=== PATIENT | male | born 1960 | race Caucasian/White ===

== ENCOUNTER 2024-08-10 10:59 | Inpatient (IN) | payer OTHER, SELFPAY ==
[2024-08-10] VITALS (10 sets, daily range): BP systolic 140–181; BP diastolic 78–90; PULSE 78–118; RESP 15–20; TEMP 36.1–37.2; O2SAT 94–100; BMI 31.2; BMI 30.9
[2024-08-10 11:57] LABS: Absolute Lymphocyte Count 0.98 X10^3/uL (0.83-4.51); Absolute Neutrophil Count 5.1 X10^3/uL (2.0-7.7); Basophil# 0.07 X10^3/uL; Eosinophil# 0.04 X10^3/uL; Eosinophils% 0.6 % (0-5); Hematocrit 41.3 % (40-54); Hemoglobin 14.3 g/dL (13.0-16.5); Lymphocyte # 0.98 X10^3/ul (0.83-4.51); Lymphocyte % 14.1 % (19-41); Mean Corp Hgb Conc 34.6 g/dL (32-36); Mean Corpuscular Hgb 32.5 pg (27.0-32.0); Mean Corpuscular Volume 93.9 fL (80-94); Mean Platelet Vol. 9.4 fl (6.2-12.0); Monocyte# 0.75 X10^3/uL; Monocyte% 10.8 % (0-10); NRBC Flagged by Analyzer 0 % (0-5); Neutrophil # 5.09 X10^3/uL (2.7-7.7); Neutrophil % 73.1 % (47-70); Platelet Count 171 K/mm3 (150-450); RBC Distribution Width CV 13.2 % (11.6-14.6); RBC Distribution Width SD 45.4 fl (35.1-43.9)
--- NOTE | 2024-08-10 12:01 | EDS_ITS ---
HPI History of Present Illness Chief Complaint: ETOH Intox Informant: patient and family (Niece) Narrative Narrative: 64-year-old male presenting to the emergency room requesting detox from alcohol. Patient states that he typically will drink around 10 Ghislaine beers a day. Since losing his job 3 weeks ago he has been drinking more. He had not seen a doctor for several years but eventually symptoms of bursitis led him to an emergency department visit and he was referred to primary care and has subsequently been diagnosed as diabetic. He states that he has tingling of his hands and his legs. He states that while visiting with his primary care doctor they referred him to 180 who requested that he come to the hospital for detox out of concern for potential withdrawal. Patient does not recall any withdrawal symptoms that has had in the past such as shaking or anxiety or palpitations. He notes that he frequently has loose stool which has been a chronic issue. 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 [facility] Medical History (Updated 08/10/24 @ 12:[address] Oleg Smith DO) Diabetes Home Medications ?Medication ?Instructions ?Recorded ?Last Taken ?Type etkmylzp-atqycytn-uyqga acid 400 1 tab PO DAILY 08/10/24 08/09/24 History mcg-vit K 20 mcg-lycop 300 mcg tablet (One-A-Day Men's Multivitamin) Allergy/AdvReac Type Severity Reaction Status Date / Time No Known Allergies Allergy Verified 08/10/24 11:00 Social History Smoking Status: Former smoker ROS ROS ED Constitutional Constitutional ED: Denies chills or weight loss Eyes Eyes: Denies change in vision or diplopia ENT ENT ED: Denies ear pain, rhinorrhea or sore throat Cardiovascular Cardiovascular: Denies chest pain, orthopnea, palpitations or racing heartbeat Respiratory/Chest Respiratory/Chest: Denies cough, dyspnea or orthopnea Gastrointestinal Gastrointestinal: Reports diarrhea; Denies abdominal pain, nausea or vomiting Genitourinary Genitourinary ED: Denies dysuria, hematuria or urinary frequency Musculoskeletal Musculoskeletal: Denies arthralgias or myalgias Integumentary Denies abscess or rash Neurologic Neurologic: Reports paresthesias; Denies headache(s) or weakness Psychiatric Psychiatric: Denies anxiety, depression, suicidal ideation or suicidal thoughts Endocrine Endocrinology: Denies polydipsia, polyphagia or polyuria Allergic/Immunologic Allergic/Immunologic ED: Denies mouth swelling, tongue swelling or urticaria EXAM Physical Exam Const Vital Signs: 08/10/24 11:00 08/10/24 11:00 08/10/24 11:44 Temperature 98.3 F 98 F Temperature Source Temporal Temporal Pulse Rate 118 H 111 H 78 Respiratory Rate 20 H 20 H 16 Blood Pressure 167/82 H 181/79 H 158/78 H Blood Pressure Mean 110 113 104 Blood Pressure Source Monitor Pulse Ox 100 97 98 Oxygen Delivery Method Room Air Room Air Room Air 08/10/24 12:00 08/10/24 13:00 Temperature Temperature Source Pulse Rate 92 Respiratory Rate Blood Pressure 144/79 H 162/79 H Blood Pressure Mean 100 106 Blood Pressure Source Pulse Ox Oxygen Delivery Method Positive well nourished and well developed General Appearance ED: well developed HEENT Reports normocephalic, head/scalp atraumatic and moist mucous membranes Eyes PERRL and EOMs intact bilaterally Neck no lymphadenopathy, supple and no JVD Resp normal respiratory effort and clear to auscultation bilaterally Cardio regular rate, regular rhythm and no murmurs GI normal to inspection, nondistended, normoactive bowel sounds and non-tender Palpation: soft Back/Spine no CVA tenderness and normal ROM Extremity normal to inspection General Extremety ED: Negative for edema General Extremity: Negative for edema Neuro oriented x3 and CN's II-XII intact bilaterally Sensorium / Orientation: alert Motor Exam: strength 5/5 throughout Psych mental status grossly normal Mood & Affect: Negative for depressed or tearful Skin no rashes or lesions noted and no wounds MDM MDM MDM Narrative Medical decision making narrative: Differential diagnosis includes alcohol abuse alcohol intoxication alcoholic hepatitis anemia electrolyte disturbance dehydration protein malnutrition White count 7.0 hemoglobin 14.3 plate count of 171 INR is normal at 1 electrolytes show a slight decrease in sodium at 130 glucose 173 magnesium 1.9 total bilirubin 1.4 direct bilirubin 0.57 AST 120 ALT 64 alk phos 140 albumin is 4 toxicology is negative. I spoke with social work regarding the patient as well as the hospitalist plan is admission History & Record Review Discussion w/independent historian: Patient and Family Lab Data Attestation: I reviewed the patient's lab results. Labs: Laboratory Results - last 24 hr 08/10/24 08/10/24 11:18 11:26 WBC 7.0 RBC 4.40 L Hgb 14.3 Hct 41.3 MCV 93.9 MCH 32.5 H MCHC 34.6 RDW Std Deviation 45.4 H RDW Coeff of Bakari 13.2 Plt Count 171 MPV 9.4 Immature Gran % (Auto) 0.400 Neut % (Auto) 73.1 H Lymph % (Auto) 14.1 L [place] % (Auto) 10.8 H Eos % (Auto) 0.6 Baso % (Auto) 1.0 Absolute Neuts (auto) 5.1 Absolute Lymphs (auto) 0.98 Nucleated RBC % 0 PT 13.4 INR 1.0 Sodium 130 L Potassium 4.2 Chloride 96 L Carbon Dioxide 26.0 Anion Gap 9 BUN 8 Creatinine 0.94 Estim Creat Clear Calc 81.80 Est GFR (MDRD) Af Amer 104 Est GFR (MDRD) Non-Af 86 BUN/Creatinine Ratio 8.5 L Glucose 173 H Calcium 9.3 Magnesium 1.9 Total Bilirubin 1.40 H Direct Bilirubin 0.57 H AST 120 H ALT 64 H Alkaline Phosphatase 140 H Total Protein 9.1 H Albumin 4.0 Globulin 5.1 H Lipase 49 Urine Opiates Screen NEGATIVE Urine Methadone Screen NEGATIVE Ur Barbiturates Screen NEGATIVE Ur Phencyclidine Scrn NEGATIVE Ur Amphetamines Screen NEGATIVE MDMA (Ecstasy) Screen NEGATIVE U Benzodiazepines Scrn NEGATIVE Urine Cocaine Screen NEGATIVE U Cannabinoids Screen NEGATIVE Ur Drug Screen Comment Ethyl Alcohol < 3.0 Management Discussion w/another healthcare provider: Hospitalist (Dr. Jimenez) and still worker helper/Case management Discharge Plan Triage Chief Complaint: ETOH Intox ED Provider: Oleg Smith Dx/Rx/DC Orders Prescriptions: No Action One-A-Day Men's Multivitamin 400-20-300 mcg tablet 1 tab PO DAILY Primary Care Provider: Ailyn Ramirez Referrals: Ailyn Ramirez MD [Primary Care Provider] - Print Language: Divehi
[2024-08-10 12:05] LABS: Prothrombin Time (Protime)PT. 13.4 SECONDS (11.7-14.9)
[2024-08-10 12:17] LABS: AST(SGOT) 120 U/L (15-37); Alanine Aminotransfer ALT/SGPT 64 U/L (16-61); Alkaline Phosphatase 140 U/L (45-117); Anion Gap 9 (5-15); BUN 8 mg/dL (7-18); BUN/Creat Ratio 8.5 RATIO (10-20); Bilirubin, Direct 0.57 mg/dL (0.00-0.30); Calcium,Total 9.3 mg/dL (8.5-10.1); Chloride 96 mmol/L (98-107); Creatinine, Serum 0.94 mg/dL (0.70-1.30); EST Glomerular Filtration Rate 86 mL/min (>60); Est Glom Filt Rate - Afr Amer 104 mL/min (>60); Globulin 5.1 g/dL (2.2-4.2); Glucose 173 mg/dL (74-106); Lipase 49 U/L (13-75); Magnesium 1.9 mg/dL (1.6-2.6); Potassium 4.2 mmol/L (3.5-5.1); Protein, Total 9.1 g/dL (6.4-8.2); Sodium Level 130 mmol/L (136-145)
--- NOTE | 2024-08-10 12:24 | ADDICTION ---
64 year old male who has never had [facility] treatment in his life. Went to [place] for bursitis and they referred him to [facility]. He has been set him up with follow up with Debbie from [facility] for next week down in [place] since he?s from [facility]. He has some insight into knowing he has to cut back (and eventually stop) due to also getting diagnosed with diabetes. He kept saying ?I just need things to occupy my time? and could benefit from some more structure and relapse prevention skills. Pt is agreeable to all recommendations.
[2024-08-10 12:39] LABS: Alcohol, Blood (Medical)-Serum < 3.0 mg/dL
[2024-08-10 13:01] LABS: Amphetamine Urine VISTA NEGATIVE (<1000 ng/mL); Barbiturate Urine VISTA NEGATIVE (< 200 ng/mL); Benzodiazepine Urine VISTA NEGATIVE (< 200 ng/mL); Cocaine Urine VISTA NEGATIVE (< 300 ng/mL); Ecstacy Urine VISTA NEGATIVE (< 500 ng/mL); Methadone Urine VISTA NEGATIVE (< 300 ng/mL); PCP Urine VISTA NEGATIVE (< 25 ng/mL); THC Urine VISTA NEGATIVE (< 50 ng/mL); Vista UDS pH Range 4
--- NOTE | 2024-08-10 13:46 | PCM.HP.STD ---
HPI - General General Date of Admission: 08/10/24 Date of Service: 08/10/24 Chief Complaint: ETOH detox HPI Narrative MAT SINCLAIR, is a 64-year-old male history of alcohol use disorder and diabetes presented to [facility] ED 08/10/2024 requesting detox from alcohol. Typically drinks around 10 Cheung beers a day but since losing his job 3 weeks ago he has been drinking more. Recently saw his primary care doc and he was referred to [facility] who requested that he come to the hospital out of concern for potential withdrawal. Has some chronic diarrhea and tingling in hands and feet. Hospitalist contacted for admission for alcohol detox. Patient evaluated at bedside and does report he will drink roughly 10 beers a day or more however if he is busy and has something to do he might drink less or not at all. Has been drinking for several years. Denies ever going through withdrawal and endorses his last drink being sometime yesterday and does not feel like he is shaky, nauseous, having any withdrawal symptoms. Patient reports some intermittent loose stools over time, no abdominal pain. No other new or acute complaints. Patient also denies any tobacco or other substance use. [facility] Medical History (Updated 08/10/24 @ 13:[address] Olge Smith, ) Diabetes Home Medications ?Medication ?Instructions ?Recorded ?Last Taken ?Type dhywluii-uvdimbwb-xmgrx acid 400 1 tab PO DAILY 08/10/24 08/09/24 History mcg-vit K 20 mcg-lycop 300 mcg tablet (One-A-Day Men's Multivitamin) Allergy/AdvReac Type Severity Reaction Status Date / Time No Known Allergies Allergy Verified 08/10/24 11:00 Social History Smoking Status: Former smoker ROS ROS Narrative General: Denies fever/chills HENT: Denies headache, denies stuffy nose, denies sore throat EYES: Denies changes in vision Resp: Denies cough, denies shortness of breath Cardiac: Denies chest pain GI: Denies abdominal pain, some occasional loose stool, denies nausea/vomiting : Denies changes in urination Extremity: Denies swelling MSK: Denies weakness Neuro: Some tingling in hands and feet chronic Heme: Denies any bleeding or bruising Skin: Denies rashes Psychiatric: No complaints voiced Vital Signs Vital Signs Vital Signs: 08/10/24 11:00 08/10/24 11:00 08/10/24 11:44 Temperature 98.3 F 98 F Temperature Source Temporal Temporal Pulse Rate 118 H 111 H 78 Respiratory Rate 20 H 20 H 16 Blood Pressure 167/82 H 181/79 H 158/78 H Blood Pressure Mean 110 113 104 Blood Pressure Source Monitor Pulse Ox 100 97 98 Oxygen Delivery Method Room Air Room Air Room Air 08/10/24 12:00 08/10/24 13:00 08/10/24 13:30 Temperature 97 F L Temperature Source Pulse Rate 92 98 Respiratory Rate 18 Blood Pressure 144/79 H 162/79 H 162/79 H Blood Pressure Mean 100 106 106 Blood Pressure Source Pulse Ox 98 Oxygen Delivery Method Weight Weight: 85.2 kg Body Mass Index (BMI) 31.2 Physical Exam Narrative General: Alert, no apparent distress HEENT: Atraumatic, normocephalic Eyes: Anicteric, normal conjunctiva, extraocular movements grossly intact Neck: Supple Respiratory: Clear to auscultation bilaterally, normal respiratory effort Cardiovascular: Regular rate and rhythm GI: Soft, protuberant but nontender, no rebound, guarding, rigidity Extremities: No edema Musculoskeletal: Moving all extremities Neuro: No overt focal neurological deficits Skin: No rashes appreciated Psych: Cooperative Results Lab / Micro Data 08/10/24 11:18 08/10/24 11:18 Labs: Laboratory Results - last 24 hr 08/10/24 11:18: WBC 7.0, RBC 4.40 L, Hgb 14.3, Hct 41.3, MCV 93.9, MCH 32.5 H, MCHC 34.6, RDW Std Deviation 45.4 H, RDW Coeff of Bakari 13.2, Plt Count 171, MPV 9.4, Immature Gran % (Auto) 0.400, Neut % (Auto) 73.1 H, Lymph % (Auto) 14.1 L, [place] % (Auto) 10.8 H, Eos % (Auto) 0.6, Baso % (Auto) 1.0, Absolute Neuts (auto) 5.1, Absolute Lymphs (auto) 0.98, Nucleated RBC % 0, PT 13.4, INR 1.0, Sodium 130 L, Potassium 4.2, Chloride 96 L, Carbon Dioxide 26.0, Anion Gap 9, BUN 8, Creatinine 0.94, Estim Creat Clear Calc 81.80, Est GFR (MDRD) Af Amer 104, Est GFR (MDRD) Non-Af 86, BUN/Creatinine Ratio 8.5 L, Glucose 173 H, Calcium 9.3, Magnesium 1.9, Total Bilirubin 1.40 H, Direct Bilirubin 0.57 H, AST 120 H, ALT 64 H, Alkaline Phosphatase 140 H, Total Protein 9.1 H, Albumin 4.0, Globulin 5.1 H, Lipase 49, Ethyl Alcohol < 3.0 08/10/24 11:26: Urine Opiates Screen NEGATIVE, Urine Methadone Screen NEGATIVE, Ur Barbiturates Screen NEGATIVE, Ur Phencyclidine Scrn NEGATIVE, Ur Amphetamines Screen NEGATIVE, MDMA (Ecstasy) Screen NEGATIVE, U Benzodiazepines Scrn NEGATIVE, Urine Cocaine Screen NEGATIVE, U Cannabinoids Screen NEGATIVE, Ur Drug Screen Comment Assessment & Plan Assessment/Plan (1) Alcohol abuse: PLAN: Plan #Alcohol use disorder - We will begin CIWA every 4 for 24 hours, then every 6 for 24 hours, then every 12 until discharge -Will have as needed Ativan, patient reports he can go a day without drinking without withdrawal symptoms and despite drink being sometime yesterday he is not exhibiting any withdrawal at this time so we will hold off on scheduling phenobarbital but if scoring high can add this -Gabapentin 300 mg every 8 as needed -Will start Bentyl and hydroxyzine as needed as well as loperamide as needed -Trazodone 100 mg p.o. nightly as needed sleep -Begin thiamine and folic acid supplementation -Zofran as needed for nausea -Case management consult to assist with discharge planning -EtOH negative -UDS negative -Patient denies any tobacco or other substance use #Type 2 diabetes mellitus -Reportedly recently diagnosed -Glucose checks and sliding scale insulin # Elevated liver function tests -Suspect secondary to his alcohol use -Repeat in a.m. -May need right upper quadrant ultrasound and/or outpatient follow-up on discharge # Hyponatremia -Mild -130 with no previous baseline, suspect due to patient's chronic alcohol use -Repeat in the a.m. #DVT ppx: Patient low risk, Win score of 1 Daxa Jimenez MD Time spent in the patient's overall evaluation,decision-making process, review of diagnostic data, adjustment of management, discussion with other providers, nursing nursing and ancillary staff involved in patient's care documentation, 56 Minutes
--- NOTE | 2024-08-10 15:34 | CM.ED ---
Social work Reason for referral: RAMP patient; HCPOA info Referral source: Dr. Sarah Smith informed SW of the patient's need to be admitted for detox and the potential need for HCPOA conversation due to patient's niece, Deborah, handling all of patient finances currently. This SW and KIEL Grimaldo entered patient room and patient was by himself sitting in a chair. Patient's niece had already left by the time SWs arrived. Patient reports never doing detox before, but patient is finding it necessary due to the amount of alcohol he has been consuming. 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 Patient discussed the way he was slowing down at work and could not lift as much as he used to. Patient was informed of what the HCPOA does and patient stated that he would probably choose Deborah to do this because he trusts her. Patient did not seem to grasp what a HCPOA did, but he seemed open to thinking about the idea. Patient also stated he would likely need to apply for Medicaid in the future if he cannot secure a job. SW offered to have Fatmata from [facility] come to help him fill out a Medicaid application, but patient did not seem able to focus on that task at this time. Handoff to acute RN CM/SW team. Plan: admission for detox, per RAMP program. Follow up as needed, per addiction therapist at [facility]. Kayce Rush, ELOCUTION TEACHER, ELEMENTARY MATH TUTOR
[2024-08-10 16:39] LABS: Bedside Glucose 152 mg/dL (74-106)
[2024-08-10] MEDS: Insulin Lispro 100 UNIT/ML INSULN.PEN SC (16:44)
[2024-08-11] VITALS (7 sets, daily range): BP systolic 139–175; BP diastolic 70–90; PULSE 87–96; RESP 15–20; TEMP 36.5–37.1; O2SAT 97–99
[2024-08-11 05:20] LABS: Absolute Lymphocyte Count 1.53 X10^3/uL (0.83-4.51); Absolute Neutrophil Count 3.4 X10^3/uL (2.0-7.7); Basophil# 0.08 X10^3/uL; Basophil% 1.4 % (0-1); Eosinophil# 0.09 X10^3/uL; Eosinophils% 1.5 % (0-5); Hematocrit 36.5 % (40-54); Hemoglobin 12.7 g/dL (13.0-16.5); Lymphocyte # 1.53 X10^3/ul (0.83-4.51); Mean Corp Hgb Conc 34.8 g/dL (32-36); Mean Corpuscular Hgb 32.7 pg (27.0-32.0); Mean Corpuscular Volume 94.1 fL (80-94); Mean Platelet Vol. 9.2 fl (6.2-12.0); Monocyte# 0.72 X10^3/uL; Monocyte% 12.2 % (0-10); NRBC Flagged by Analyzer 0 % (0-5); Neutrophil # 3.44 X10^3/uL (2.7-7.7); Neutrophil % 58.6 % (47-70); Platelet Count 140 K/mm3 (150-450); RBC Distribution Width CV 13.2 % (11.6-14.6); RBC Distribution Width SD 45.6 fl (35.1-43.9); Red Blood Count 3.88 M/mm3 (4.6-6.2); White Blood Count 5.9 K/mm3 (4.4-11.0)
[2024-08-11 05:32] LABS: International Normalized Ratio 1.1; Prothrombin Time (Protime)PT. 14.1 SECONDS (11.7-14.9)
[2024-08-11 06:19] LABS: ALB/GLOB Ratio 0.8 RATIO (0.9-2.4); AST(SGOT) 117 U/L (15-37); Alanine Aminotransfer ALT/SGPT 63 U/L (16-61); Albumin, Serum 3.6 g/dL (3.2-5.0); Alkaline Phosphatase 123 U/L (45-117); Anion Gap 8 (5-15); BUN 17 mg/dL (7-18); BUN/Creat Ratio 15.2 RATIO (10-20); Calcium,Total 8.9 mg/dL (8.5-10.1); Chloride 95 mmol/L (98-107); Creatinine, Serum 1.12 mg/dL (0.70-1.30); EST Glomerular Filtration Rate 71 mL/min (>60); Est Glom Filt Rate - Afr Amer 85 mL/min (>60); Estimated Creatinine Clearance 68.28 ml/min; Globulin 4.3 g/dL (2.2-4.2); Glucose 119 mg/dL (74-106); Magnesium 2.1 mg/dL (1.6-2.6); Potassium 3.9 mmol/L (3.5-5.1); Protein, Total 7.9 g/dL (6.4-8.2); Sodium Level 125 mmol/L (136-145)
[2024-08-11 06:41] LABS: Bedside Glucose 135 mg/dL (74-106)
--- NOTE | 2024-08-11 07:24 | PCM.PN.HOSP ---
Reason for Visit Reason for Visit: Alcohol detox Subjective Subjective Patient is a 64-year-old white male who presents emergency department [facility] on 08/10/2020 for reporting history of alcohol use disorder requesting alcohol detox. He reported that he drinks about 10 Ghislaine beers daily typically and since losing his job 3 weeks ago he has been drinking even more. He saw his primary care doctor at which time he was referred to [facility] who requested he come to the hospital for alcohol detox due to the concern for potential withdrawal. Patient did report some chronic diarrhea and tingling in his hands and feet. He indicated and drinking several years and denied ever going through active withdrawal. He reported his last drink was sometime the day prior to presentation and did not feel shaky, nauseated and denied having any significant alcohol withdrawal symptoms. He denied any other substance use or tobacco use. Patient states right now he is feeling okay. Does not have any signs of withdrawal. Plan is to follow-up as an outpatient at [facility] in [place]. We discussed that if he continues to not have any symptoms through the night and feels well tomorrow he will likely discharge home tomorrow for outpatient follow-up. Objective Data Objective Data Vital Signs: Vital Signs Temp Pulse Resp BP Pulse Ox O2 Del Method 98.4 F 87 15 175/84 H 99 Venturi Mask 08/11/24 06:00 08/11/24 06:00 08/11/24 06:00 08/11/24 06:00 08/11/24 06:00 08/11/24 06:00 Oxygen Delivery Method Venturi Mask Weight: 84.232 kg Body Mass Index (BMI) 30.9 Intake & Output: Intake and Output for Last 24 Hours 08/09/24 08/10/24 08/11/24 23:59 23:59 23:59 Intake Total 350 / 350 300 / 300 Balance 350 / 350 300 / 300 Lab / Micro Data 08/11/24 04:30 08/11/24 04:30 Labs: Laboratory Results - last 24 hr 08/10/24 11:18: WBC 7.0, RBC 4.40 L, Hgb 14.3, Hct 41.3, MCV 93.9, MCH 32.5 H, MCHC 34.6, RDW Std Deviation 45.4 H, RDW Coeff of Bakari 13.2, Plt Count 171, MPV 9.4, Immature Gran % (Auto) 0.400, Neut % (Auto) 73.1 H, Lymph % (Auto) 14.1 L, [place] % (Auto) 10.8 H, Eos % (Auto) 0.6, Baso % (Auto) 1.0, Absolute Neuts (auto) 5.1, Absolute Lymphs (auto) 0.98, Nucleated RBC % 0, PT 13.4, INR 1.0, Sodium 130 L, Potassium 4.2, Chloride 96 L, Carbon Dioxide 26.0, Anion Gap 9, BUN 8, Creatinine 0.94, Estim Creat Clear Calc 81.80, Est GFR (MDRD) Af Amer 104, Est GFR (MDRD) Non-Af 86, BUN/Creatinine Ratio 8.5 L, Glucose 173 H, Calcium 9.3, Magnesium 1.9, Total Bilirubin 1.40 H, Direct Bilirubin 0.57 H, AST 120 H, ALT 64 H, Alkaline Phosphatase 140 H, Total Protein 9.1 H, Albumin 4.0, Globulin 5.1 H, Lipase 49, Ethyl Alcohol < 3.0 08/10/24 11:26: Urine Opiates Screen NEGATIVE, Urine Methadone Screen NEGATIVE, Ur Barbiturates Screen NEGATIVE, Ur Phencyclidine Scrn NEGATIVE, Ur Amphetamines Screen NEGATIVE, MDMA (Ecstasy) Screen NEGATIVE, U Benzodiazepines Scrn NEGATIVE, Urine Cocaine Screen NEGATIVE, U Cannabinoids Screen NEGATIVE, Ur Drug Screen Comment 08/10/24 16:10: POC Glucose 152 H 08/11/24 04:30: WBC 5.9, RBC 3.88 L, Hgb 12.7 L, Hct 36.5 L, MCV 94.1 H, MCH 32.7 H, MCHC 34.8, RDW Std Deviation 45.6 H, RDW Coeff of Bakari 13.2, Plt Count 140 L, MPV 9.2, Immature Gran % (Auto) 0.300, Neut % (Auto) 58.6, Lymph % (Auto) 26.0, [place] % (Auto) 12.2 H, Eos % (Auto) 1.5, Baso % (Auto) 1.4 H, Absolute Neuts (auto) 3.4, Absolute Lymphs (auto) 1.53, Nucleated RBC % 0, PT 14.1, INR 1.1, Sodium 125 L, Potassium 3.9, Chloride 95 L, Carbon Dioxide 22.0, Anion Gap 8, BUN 17, Creatinine 1.12, Estim Creat Clear Calc 68.28, Est GFR (MDRD) Af Amer 85, Est GFR (MDRD) Non-Af 71, BUN/Creatinine Ratio 15.2, Glucose 119 H, Calcium 8.9, Magnesium 2.1, Total Bilirubin 1.90 H, AST 117 H, ALT 63 H, Alkaline Phosphatase 123 H, Total Protein 7.9, Albumin 3.6, Globulin 4.3 H, Albumin/Globulin Ratio 0.8 L 08/11/24 06:20: POC Glucose 135 H Physical Exam Const alert, oriented x3, no apparent distress and well nourished; Negative for average body habitus Constitutional Narrative: Obese, middle-aged, white male, walking around his room independently, appears comfortable, nontoxic, no overt signs of alcohol withdrawal at this time HEENT head/scalp atraumatic and moist oral mucous membranes Head and Scalp: normocephalic Resp normal respiratory effort, no retractions, no use of accessory muscles and clear to auscultation bilaterally Auscultation: Negative for rales, rhonchi or wheezes Cardio regular rate, regular rhythm, S1 normal heart sound, S2 normal heart sound, no murmurs, no rub, no gallops and no clicks GI normal to inspection, nondistended, normoactive bowel sounds, soft to palpation and non-tender Extremity no clubbing, cyanosis or edema Extremity Narrative: Pedal pulses are 2+ Neuro oriented x3, moves all extremities and no focal motor deficits Speech: speech normal Psych affect normal Assessment & Plan Assessment/Plan (1) Alcohol abuse: PLAN: Plan Alcohol detox with history of alcohol use disorder -Patient was almost 24 hours out from last alcohol use on presentation and not having any symptoms -Continue CIWA and overall suspicion for significant withdrawal is low -If CIWA starts to trend up will add phenobarbital taper but holding off for now -Continue supportive medications for any symptoms consistent with withdrawal -continue thiamine and folate -Alcohol and urine tox screen were negative -180 consultation for assistance with discharge planning -? vivtrol -Case management consulted to assist with discharge planning -Possible discharge tomorrow if patient is not having any active withdrawal symptoms Euosmolar/hypovolemic hyponatremia -Baseline is unclear -130 on admission and now down to 125 -Will fluid restrict for now to 1500 cc daily -Urine osmolality is normal, serum osmolality is normal, urine sodium is 9 and uric acid is normal. Specific gravity of urine is consistent with hemoconcentration at 1.02 -Appears related to dehydration will add 2 L normal saline at 100 cc/h and recheck lab in the morning -Medications reviewed and patient does not appear to be on any offending medications also hyperglycemia is not significant with a blood sugar of 119 this morning -Repeat BMP in a.m. Hypertension -Start lisinopril 10 mg daily -As needed clonidine for systolic blood pressure greater than 160 DM-2 -Evidently new diagnosis -Fasting blood sugar 119 this morning -Continue Accu-Cheks -Continue SSI Transaminitis -Highly suspicious of fatty liver -No previous imaging to review -Will refer to GI at discharge Obesity -BMI is 30.9 -Recommend weight loss -Complicates treatment, prognosis, outcomes DVT prophylaxis -Low risk -Win score 1 for obesity with BMI greater than 30 CODE STATUS -Full code as verified by admitting physician Charges/Coding Visit Charges Inpatient E&M: 65789 Subs Hosp L2
[2024-08-11] MEDS: Thiamine Hydrochloride 100 MG Tablet PO (07:27)
[2024-08-11] MEDS: Folic Acid 1 MG Tablet PO (07:27)
[2024-08-11 08:13] LABS: Uric Acid 4.2 mg/dL (3.5-7.2)
[2024-08-11 09:41] LABS: Osmolality, Serum 281 mOsm/KG (280-301)
[2024-08-11 09:44] LABS: Bacteria 0 SEEN /hpf (None Seen); Mucous, Urine 0 SEEN /hpf (<or=2+)
[2024-08-11 09:47] LABS: Color, Urine Yellow (Yellow); Glucose, Dipstick Normal (Normal); Ketone-Dipstick 15 mg/dl (Negative); Leukocyte Esterase-Dipstick 25 /ul (Negative); Nitrite-Dipstick Positive (Negative); Occult Blood-Urine 150 /ul (Negative); Protein-Dipstick 100 mg/dl (Negative); Urine Bilirubin Dipstick 1 mg/dL (Negative); Urine Clarity Clear (Clear); Urine Urobilinogen 4 mg/dl (Normal)
[2024-08-11 09:49] LABS: Urine Sodium 9 mmol/L (Not Establ.)
[2024-08-11 10:05] LABS: Red Blood Cells-Urine 0-5 SEEN /hpf (0-5); Squamous Epithelial Cells - UA 0-5 SEEN /hpf (0-5); White Blood Cells 0-5 SEEN /hpf (0-5)
[2024-08-11] MEDS: Insulin Lispro 100 UNIT/ML INSULN.PEN SC ×2 (10:57→15:56)
[2024-08-11 11:15] LABS: Osmolality, Urine 585 mOsm/KG
[2024-08-11 11:27] LABS: Bedside Glucose 185 mg/dL (74-106)
[2024-08-11] MEDS: 0.9% Normal Saline (1000mL) 1,000 ML 100 ML IV ×2 (12:54→22:54)
[2024-08-11] MEDS: Lisinopril 10 MG Tablet PO (12:57)
--- NOTE | 2024-08-11 13:52 | CHAPLAIN ---
Type of Pastoral Visit _x__ Initial Visit ___ Follow-up Visit ___ On-call Visit ___ General Patient Visit ___ Spiritual Assessment ___ Family Conference ___ Bereavement ___ Rapid Response ___ Code Blue ___ Other (describe below) Pastoral Care Referral From _x__ Patient ___ Family ___ Nurse ___ Physician ___ Farm Equipment Mechanic Apprentice ___ Filling Technician ___ Other (describe below) Sacrament/Intervention _x__ Active listening ___ Anointing ___ Worship ___ Bereavement ___ Communion ___ Anali exploration ___ _x__ Life review _x__ Prayer ___ Reconciliation ___ Sacrament of Sick _x__ Supportive presence ___ Wedding ___ Other (describe below) Pastoral Comments patient is welcoming and talkative although some comments made has some hesitation; pt states that he is surprised by his low sodium; pt does admit to need for detox and gives reason as losing his job and coping with health issues; pt has very limited support; pt hopes to regain health and work or get SS disability for his resources; pt states that he was raised in a [employer] and maybe I need to go back to that; pt is open for prayer and presence by this assurance assistant
[2024-08-11 16:15] LABS: Bedside Glucose 174 mg/dL (74-106)
[2024-08-12 04:06] VITALS: BP 139/93; PULSE 86; RESP 16; TEMP 36.7; O2SAT 96
[2024-08-12 06:29] LABS: Anion Gap 7 (5-15); BUN 13 mg/dL (7-18); BUN/Creat Ratio 19.3 RATIO (10-20); Calcium,Total 8.3 mg/dL (8.5-10.1); Chloride 101 mmol/L (98-107); Creatinine, Serum 0.68 mg/dL (0.70-1.30); EST Glomerular Filtration Rate 126 mL/min (>60); Est Glom Filt Rate - Afr Amer 153 mL/min (>60); Estimated Creatinine Clearance 112.46 ml/min; Glucose 108 mg/dL (74-106); Phosphorus 3.1 mg/dL (2.5-4.9); Potassium 3.9 mmol/L (3.5-5.1); Sodium Level 130 mmol/L (136-145)
[2024-08-12 07:17] LABS: Bedside Glucose 106 mg/dL (74-106)
[2024-08-12 08:00] VITALS: PULSE 90
[2024-08-12 08:07] VITALS: BP 143/80; PULSE 88; RESP 20; TEMP 37.1; O2SAT 100
[2024-08-12] MEDS: Lisinopril 10 MG Tablet PO (08:10)
[2024-08-12] MEDS: Folic Acid 1 MG Tablet PO (08:10)
[2024-08-12] MEDS: Thiamine Hydrochloride 100 MG Tablet PO (08:10)
--- NOTE | 2024-08-12 09:53 | PCM.DC.SUM ---
Providers Date of Admission: 08/10/24 Date of Discharge: 08/12/24 Primary Care Physician: Dr. Ailyn Ramirez MD Reason For Visit: ETOH DETOX Diagnosis Discharge Diagnosis (1) Alcohol abuse: Status: Acute Code(s): F10.10 - Alcohol abuse, uncomplicated Plan Alcohol detox with history of alcohol use disorder -Patient was almost 24 hours out from last alcohol use on presentation and not having any symptoms -Continue CIWA and overall suspicion for significant withdrawal is low -If CIWA starts to trend up will add phenobarbital taper but holding off for now -Continue supportive medications for any symptoms consistent with withdrawal -continue thiamine and folate -Alcohol and urine tox screen were negative -180 consultation for assistance with discharge planning -? vivtrol -Case management consulted to assist with discharge planning -Possible discharge tomorrow if patient is not having any active withdrawal symptoms Euosmolar/hypovolemic hyponatremia -Baseline is unclear -130 on admission and now down to 125 -Will fluid restrict for now to 1500 cc daily -Urine osmolality is normal, serum osmolality is normal, urine sodium is 9 and uric acid is normal. Specific gravity of urine is consistent with hemoconcentration at 1.02 -Appears related to dehydration will add 2 L normal saline at 100 cc/h and recheck lab in the morning -Medications reviewed and patient does not appear to be on any offending medications also hyperglycemia is not significant with a blood sugar of 119 this morning -Repeat BMP in a.m. Hypertension -Start lisinopril 10 mg daily -As needed clonidine for systolic blood pressure greater than 160 DM-2 -Evidently new diagnosis -Fasting blood sugar 119 this morning -Continue Accu-Cheks -Continue SSI Transaminitis -Highly suspicious of fatty liver -No previous imaging to review -Will refer to GI at discharge Obesity -BMI is 30.9 -Recommend weight loss -Complicates treatment, prognosis, outcomes DVT prophylaxis -Low risk -Win score 1 for obesity with BMI greater than 30 CODE STATUS -Full code as verified by admitting physician Medications at Discharge Home Medications edszvqqp-fmlgwjwz-ehlik acid 400 mcg-vit K 20 mcg-lycop 300 mcg tablet (One-A-Day Men's Multivitamin) 1 tab PO DAILY 08/10/24 lisinopril 20 mg tablet 20 mg PO DAILY #30 tabs 08/12/24 Hospital Course Operations None Procedures None Summary of Care Provided Minutes Spent on Discharge: 25 Hospital Course: Patient is a 64-year-old white male who presents emergency department [facility] on 08/10/2020 for reporting history of alcohol use disorder requesting alcohol detox. He reported that he drinks about 10 Ghislaine beers daily typically and since losing his job 3 weeks ago he has been drinking even more. He saw his primary care doctor at which time he was referred to [facility] who requested he come to the hospital for alcohol detox due to the concern for potential withdrawal. Patient did report some chronic diarrhea and tingling in his hands and feet. He indicated and drinking several years and denied ever going through active withdrawal. He reported his last drink was sometime the day prior to presentation and did not feel shaky, nauseated and denied having any significant alcohol withdrawal symptoms. He denied any other substance use or tobacco use. Patient was admitted to the medical floor and CIWA's were monitored and were very minimal throughout his entire stay. At the time of discharge, his CIWA had been negative at 0 for 24 hours without any medication. He was able to be discharged home in stable condition on 08/12/2024. His blood pressure was elevated throughout his stay and given his new diagnosis of diabetes we started him on lisinopril for renal protection and blood pressure control. Dose at the time of discharge was 20 mg daily. I have asked that he follow-up with his primary care physician to obtain a basic metabolic profile in the next 2 to 4 weeks. With regards to his alcohol addiction, he is to follow-up at [facility] in [place] and has an appointment with Debbie next week. Discharge diagnoses: Alcohol detox with history of alcohol use disorder Euosmolar hypovolemic hyponatremia-improved Hypertension DM-2 Transaminitis Obesity Physical Exam Const alert, oriented x3, no apparent distress and well nourished; Negative for average body habitus Constitutional Narrative: Obese, middle-aged, white male, walking out of the bathroom, appears comfortable, nontoxic, no signs of alcohol withdrawal at this time whatsoever General Appearance: cooperative, comfortable, well kempt and well developed Nutritional Appearance: obese HEENT normocephalic, head/scalp atraumatic, hearing grossly normal bilaterally and moist oral mucous membranes HEENT Narrative: Mallampati 3 Resp normal respiratory effort, no retractions, no use of accessory muscles and clear to auscultation bilaterally Auscultation: Negative for rales, rhonchi or wheezes Cardio regular rate, regular rhythm, S1 normal heart sound, S2 normal heart sound, no murmurs, no rub, no gallops and no clicks GI normal to inspection, nondistended, normoactive bowel sounds, soft to palpation and non-tender Extremity no clubbing, cyanosis or edema Extremity Narrative: Pedal pulses are 2+ Neuro oriented x3, moves all extremities and no focal motor deficits Neuro Narrative: Normal gait with independent ambulation Speech: speech normal Psych affect normal Weight / BMI Weight Weight: 84.232 kg Body Mass Index (BMI) 30.9 ABG / Lab / Microbiology Data 08/11/24 04:30 08/12/24 05:09 Laboratory: Laboratory Results - last 24 hr 08/11/24 09:35: Urine RBC 0-5 SEEN, Urine WBC 0-5 SEEN, Ur Squamous Epith Cells 0-5 SEEN, Urine Bacteria 0 SEEN, Urine Mucus 0 SEEN, Urine Osmolality 585 08/11/24 10:56: POC Glucose 185 H 08/11/24 15:55: POC Glucose 174 H 08/12/24 05:09: Sodium 130 L, Potassium 3.9, Chloride 101, Carbon Dioxide 21.0, Anion Gap 7, BUN 13, Creatinine 0.68 L, Estim Creat Clear Calc 112.46, Est GFR (MDRD) Af Amer 153, Est GFR (MDRD) Non-Af 126, BUN/Creatinine Ratio 19.3, Glucose 108 H, Calcium 8.3 L, Phosphorus 3.1, Magnesium 2.0, TSH 3.040, Cortisol 12.70 08/12/24 06:57: POC Glucose 106 D/C Instructions Discharge Diet: Low fat / Low cholesterol Discharge Activity: Return to Normal Activity Meaningful Use Info Meaningful Use Meaningful Use Diagnoses (Choose all that apply): None applicable Ischemic Stroke Statin Dosing Therapy Reference: STATIN DOSE THERAPY REFERENCE: * Patients > 75 years receive moderate or high dose statin therapy. * Patients 75 years or YOUNGER should receive HIGH intensity statin dose unless contraindicated. You will be required to document reason for non-treatment if statin daily dose does not meet guidelines. HIGH DOSE STATIN THERAPY DAILY Atorvastatin > than or = to 40 mg Rosuvastatin > than or = to 20 mg Amlodipine + Atorvastatin > than or = to 2.5/40 mg Ezetimibe + Simvastatin 10/80 mg Simvastatin 80mg Discharge Plan Admission Admit Date/Time: 08/10/24 13:46 Primary Reason for Your Visit: Alcohol abuse Attending Provider: Keisha Oh Primary Care Provider: Ailyn Ramirez Consulting Providers: Daxa Jimenez Instructions Additional Instructions / Restrictions: 1. Please follow-up with Meryl at [address] in [place] as scheduled next week Discharge Orders/Prescriptions Prescriptions: New lisinopril 20 mg tablet 20 mg PO DAILY Qty: 30 1RF Continued One-A-Day Men's Multivitamin 400-20-300 mcg tablet 1 tab PO DAILY Referrals / Follow Up: Ailyn Ramirez MD [Primary Care Provider] - Within 1 Week Disposition Disposition (needs filled in before D/C Order can be placed): Home, Self Care Charges/Coding Visit Charges Inpatient E&M: 00112 Disch Hosp
[2024-08-12] MEDS: Insulin Lispro 100 UNIT/ML INSULN.PEN SC (11:25)
[2024-08-12 11:48] LABS: Bedside Glucose 190 mg/dL (74-106)
--- NOTE | 2024-08-12 12:00 | NURSING ---
1150 called milo Delgadillo and is very concerned that pt is going home. Said she is cleaning up his house now with 100 beer cans, milo started yelling and nurse, she is worried he will come home and drink again. Yelling at nurse, nursed asked her kindly to stop yelling and Deborah hung up. Nurse spoke with doctor, and pt has follow up appt with 180 next week, and has not been symptomatic and has not needed the usual treatment for withdrawal. Nurse spoke with Deborah again and she is frustrated, has gone through this with her dad , and states can't do it again. Nurse listened and assured her she was being heard. Stated she will clean up his house and come in about in hour. Nurse assured that would be fine.
[2024-08-12 13:46] VITALS: BP 147/76; PULSE 95; RESP 20; TEMP 37; O2SAT 100
== END 2024-08-12 15:52 | disposition home or self-care (01) | DRG 897 ==
LOC: ED 13:31 → MS3 15:25
PROVIDERS: Admitting Provider Internal Medicine; Emergency Provider Emergency Medicine; PCP Student in an Organized Health Care Education/Training Program; Visit Provider Internal Medicine
DX: F10.10 Alcohol abuse, uncomplicated (principal); E87.1 Hypo-osmolality and hyponatremia; E11.9 Type 2 diabetes mellitus without complications; I10 Essential (primary) hypertension; E66.9 Obesity, unspecified; Z79.4 Long term (current) use of insulin; K52.9 Noninfective gastroenteritis and colitis, unspecified; Z87.891 Personal history of nicotine dependence; R74.01 Elevation of levels of liver transaminase levels; Z68.30 Body mass index [BMI] 30.0-30.9, adult; Y90.9 Presence of alcohol in blood, level not specified
CPT/HCPCS: 36415; 80048; 80053; 80076; 80307; 81001; 82077; 82533; 82962; 83690; 83735; 83930; 83935; 84100; 84300; 84443; 84550; 85025; 85610; 99285; 99406; J7030; A4216